=== PATIENT | male | born 1990 | race Caucasian/White ===

== ENCOUNTER 2022-05-14 12:15 | Emergency (ER) | payer BC, SELFPAY ==
[2022-05-14 12:31] VITALS: BP 161/104; PULSE 62; RESP 16; TEMP 36.2; O2SAT 100; BMI 40.3
[2022-05-14 12:44] LABS: Appearance Urine Clear (Clear); Bilirubin Urine Negative (Negative); Blood Urine 3+ (Negative); Color Urine Yellow (Yellow); Glucose Urine Negative (Negative); Ketones Urine Negative (Negative); Leukocyte Esterase Urine Negative (Negative); Nitrite Urine Negative (Negative); Protein Urine Negative (Negative); Urobilinogen Urine 0.2 (0.2-1.0)
[2022-05-14 13:00] LABS: WBC Urine 0-2 (0-5)
--- NOTE | 2022-05-14 13:34 | ED_ITS ---
HPI - Abdominal Pain General Chief Complaint: Flank Pain Stated Complaint: Back pain Time Seen by Provider: 05/14/22 13:20 History of Present Illness HPI narrative: 31-year-old man presenting to the emergency department with complaint of intense waxing and waning achy pain in the left flank beginning yesterday evening. More intense this morning after drinking coffee. Little nauseated but has not vomited. Pain is better at the moment. Has not noticed any hematuria. No fever. Does have a history of passable kidney stones last was maybe 3 years ago. Has been treating with ibuprofen acetaminophen. Last dose did not make much difference. Related Data Home Medications Medication Instructions Recorded Confirmed losartan 50 mg tablet (Cozaar) 50 mg PO DAILY 05/14/22 05/14/22 metoprolol tartrate 50 mg tablet 50 mg PO DAILY 05/14/22 05/14/22 Previous Rx's Medication Instructions Recorded ondansetron 4 mg disintegrating 4 mg PO Q6H PRN Nausea And 05/14/22 tablet Vomiting #10 tabs oxycodone-acetaminophen 5 mg-325 1 - 2 tab PO Q4-6H PRN pain #15 05/14/22 mg tablet (Percocet) tabs tamsulosin 0.4 mg capsule 0.4 mg PO DAILY #14 caps 05/14/22 Allergies Allergy/AdvReac Type Severity Reaction Status Date / Time No Known Drug Allergies Allergy Verified 05/14/22 12:34 Review of Systems Status of ROS Reports: 10 or more systems reviewed and unremarkable except as noted in History and below PFSH PFSH Social History Smoking Status: Never smoker Do you use any of these nicotine containing products: None Second hand tobacco smoke exposure: No How often do you have a drink containing alcohol: never How often do you have six or more drinks on one occasion: Never AUDIT-C Alcohol total score: 0 Non-prescribed substance use: denies use service: No Exam Narrative: Exam Narrative: Pleasant. NAD. Large man. Skin is warm and dry. Does have tattoo on the left volar forearm. Breathing easily. Lungs appear to be clear. Heart with regular rate and rhythm distant but no murmur rub or gallop. Abdomen is soft overweight. Is no reproducible pain at this time. No significant percussion tenderness I would say. Cranial nerves 2-12 look to be intact Const: Vital Signs, click to edit/add: Vital Signs - 24 hr 05/14/22 12:31 Temperature 97.1 F L Pulse Rate [Left P ulse Oximeter] 62 Respiratory Rate 16 Blood Pressure [Le ft Upper Arm] 161/104 H Pulse Oximetry 100 Oxygen Delivery Me thod Room Air Documenting provider has reviewed patient's vital signs: yes Course Vital Signs Vital signs: Initial Vital Signs Temperature 97.1 F L 05/14/22 12:31 Temperature Source Temporal Artery Scan 05/14/22 12:31 Pulse Rate 62 05/14/22 12:31 Pulse Rhythm 05/14/22 12:31 Pulse Strength 3+ Normal 05/14/22 12:31 Respiratory Rate 16 05/14/22 12:31 Blood Pressure 161/104 H 05/14/22 12:31 Blood Pressure Mean 123 05/14/22 12:31 Blood Pressure Position Sitting 05/14/22 12:31 Pulse Oximetry 100 05/14/22 12:31 Oxygen Delivery Method 05/14/22 12:31 Vital Signs Temperature 97.1 F L 05/14/22 12:31 Pulse Rate 62 05/14/22 12:31 Respiratory Rate 16 05/14/22 12:31 Blood Pressure 161/104 H 05/14/22 12:31 Pulse Oximetry 100 05/14/22 12:31 Oxygen Delivery Method 05/14/22 12:31 Temperature 97.1 F L 05/14/22 12:31 Pulse Rate 62 05/14/22 12:31 Respiratory Rate 16 05/14/22 12:31 Blood Pressure 161/104 H 05/14/22 12:31 Pulse Oximetry 100 05/14/22 12:31 Oxygen Delivery Method 05/14/22 12:31 MDM - Abdominal Pain MDM Narrative Medical decision making narrative: Urinalysis is positive for blood without evidence of infection otherwise. We discussed potentially doing imaging or other evaluation. Given history of passable stone and its doing well at this time he would rather do this outpatient if possible. Will provide him with pain management. See patient discharge information/plan Lab Data Attestation: I reviewed the patient's lab results. Labs: Lab Results 05/14/22 Range/Units 12:37 Urine Color Yellow (Yellow) Urine Appearance Clear (Clear) Urine pH 8.0 (5.0-8.5) Ur Specific [place] 1.020 (1.000-1.030) Urine Protein Negative (Negative) Urine Glucose (UA) Negative (Negative) Urine Ketones Negative (Negative) Urine Blood 3+ A (Negative) Urine Nitrite Negative (Negative) Urine Bilirubin Negative (Negative) Urine Urobilinogen 0.2 (0.2-1.0) Ur Leukocyte Esterase Negative (Negative) Urine RBC 10-25 A (0-2) Urine WBC 0-2 (0-5) Ur Squamous Epith Cells None (None-Few) Urine Bacteria None (None) Discharge Plan Discharge Clinical Impression: Ureteral colic, Left ureteral calculus Patient Disposition: Home, Self-Care Condition: Stable Instructions: Ureteral Stones (ED) Additional Instructions: Return for uncontrolled pain, repeated vomiting, fever. Be seen for pain lasting 4 more days has experiencing currently. Can take up to 800 mg of ibuprofen per dose which may be combined with any of the prescribed medications. Strain urine over this next week. Prescriptions: New oxycodone-acetaminophen [Percocet] 5-325 mg tablet 1 - 2 tab PO Q4-6H PRN (Reason: pain) Qty: 15 0RF tamsulosin 0.4 mg capsule 0.4 mg PO DAILY Qty: 14 0RF ondansetron 4 mg tablet,disintegrating 4 mg PO Q6H PRN (Reason: Nausea And Vomiting) Qty: 10 0RF No Action losartan [Cozaar] 50 mg tablet 50 mg PO DAILY metoprolol tartrate 50 mg tablet 50 mg PO DAILY Stand Alone Forms: [employer] Info Instructions
== END 2022-05-14 14:06 | disposition home or self-care (01) ==
PROVIDERS: Emergency Provider Family Medicine
DX: N20.1 Calculus of ureter (principal)
CPT/HCPCS: 81003; 81015; 99283; 99284

== ENCOUNTER 2025-01-01 22:35 | Emergency (ER) | payer BC, SELFPAY ==
--- OUTSIDE RECORDS SUMMARY | 2024-11-24 14:35 | XMS_ITS | Encounter Summary ---
Author Organization [employer] Address [address], [place] [address] Care Team Providers Care Garden Implement Mechanic Name Role Phone Yang Arias PA-C Primary Care Provider [phone] Reason for Referral * Consult/Transfer Care (Routine) - New Request Specialty Diagnoses / Procedures Referred By Carly patel Referred To Contact Diagnoses Class 2 severe obesity with serious comorbidity and body mass index (BMI) of 38.0 to 38.9 in adult, unspecified obesity type (HRC) Yang Arias PA-C [address] [place] [address] Phone: tel: fax: Referral ID Status Reason Start Date Expiration Date V isits Requested Visits Authorized [id number] New Request 11/24/2024 02/23/2026 1 1 Scheduling Instructions Your clinician has recommended an appointment with [employer] Nutrition/Dietitian. You can quickly schedule your appointment by signing in to your online account at [email or web address] or through the text message you may have received. You can also make an appointment by calling [phone]. We also suggest you call your health insurance provider about your benefits and coverage for this appointment. Question Answer Appointment Urgency? Non-Urgent Reason for visit? Needs Weight Loss * Consult/Transfer Care (Routine) - New Request Specialty Diagnoses / Procedures Referred By Carly patel Referred To Contact Diagnoses Class 2 severe obesity with serious comorbidity and body mass index (BMI) of 38.0 to 38.9 in adult, unspecified obesity type (HRC) Yang Arias PA-C [address] [place] [address] Phone: tel: fax: Referral ID Status Reason Start Date Expiration Date V isits Requested Visits Authorized [id number] New Request 11/24/2024 02/23/2026 1 1 Scheduling Instructions Your clinician has recommended an evaluation by our [facility] team. You can quickly schedule your appointment by signing in to your online account at [email or web address] or through the text message you may have received. You can also call [phone] for help scheduling your appointment. Question Answer Appointment Urgency? Non-Urgent Reason for visit? Undecided Reason for Visit * Reason Comments MEDICATION CHECK Refill BP CHECK, HYPERTENSION ROUTINE HEALTH MAINTENANCE Encounter Details Date Type Department Care Team (Late st Contact Info) Description 11/24/2024 2:35 PM CDT Office Visit [facility] [address] [place] [phone] Yang Arias PA-C [address] [place] [address] Routine health maintenance (Primary Dx); Primary hypertension (HRC); Screening for deficiency anemia; Screening for hyperlipidemia; Screening for diabetes mellitus; Screening for prostate cancer; Encounter for immunization; Class 2 severe obesity with serious comorbidity and body mass index (BMI) of 38.0 to 38.9 in adult, unspecified obesity type (HRC) Social History Tobacco Use Types Packs/Day Years Used Date Smoking Tobacco: Former Smokeless Tobacco: Former Chew Quit: 03/14/2021 Alcohol Use Standard Drinks/Week Comments Yes 0 (1 standard drink = 0.6 oz pur e alcohol) Rarely PHQ-2 Answer Date Recorded PHQ-2 Score 0 11/24/2024 Financial Resource Strain Answer Date R ecorded Is it hard for you to pay fo r the very basics like food, housing, medical care or heating? No 07/18/2022 Food Insecurity Answer Date Recorded Does your food run out before you have the money to buy more? No 07/18/2022 Transportation Needs Answer Date Record ed Does a lack of transportatio n keep you from your medical appointments or from getting your medications? 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 file Not on file N ot on file documented as of this encounter Last Filed Vital Signs Vital Sign Reading Time Taken Comments Blood Pressure 156/94 11/24/2024 2:27 PM CDT Pulse 73 11/24/2024 2:25 PM CDT Temperature - - Respiratory Rate 18 11/24/2024 2:25 PM CDT Oxygen Saturation - - Inhaled Oxygen Concentration - - Weight 147 kg (324 lb) 11/24/2024 2:25 PM CDT Height 195.6 cm (6' 5) 11/24/2024 2:25 PM CDT Body Mass Index 38.42 11/24/2024 2:25 PM CDT documented in this encounter Patient Instructions * Patient Instructions* Marika Nathan, TRUCK SALES MANAGER - 11/24/2024 2:35 PM CDT Images from the original note were not included. Well Visit, Ages 18 to 65: Care Instructions Well visits can help you stay healthy. Your doctor has checked your overall health and may have suggested ways to take good care of yourself. Your doctor also may have recommended tests. You can helpprevent illness with healthy eating, good sleep, vaccinations, regular exercise, and other steps. Get the tests that you and your doctor decide on. Depending on your age and risks, examples might include screening for diabetes; hepatitis C; HIV; and cervical, breast, lung, and colon cancer. Screening helps find diseases before any symptoms appear. Eat healthy foods. Choose fruits, vegetables, whole grains, lean protein, and low-fat dairy foods. Limit saturated fat and reduce salt. Limit alcohol. Men should have no more than 2 drinks a day. Women should have no more than 1. For some people, no alcohol is the best choice. Exercise. Get at least 30 minutes of exercise on most days of the week. Walking can be a good choice. Reach and stay at your healthy weight. This will lower your risk for many health problems. Take care of your mental health. Try to stay connected with friends, family, and community, and find ways to manage stress. If you're feeling depressed or hopeless, talk to someone. A counselor can help. If you don't have acounselor, talk to your doctor. Talk to your doctor if you think you may have a problem with alcohol or drug use. This includes prescription medicines, marijuana, and other drugs. Avoid tobacco and nicotine: Don't smoke, vape, or chew. If you need help quitting, talk to your doctor. Practice safer sex. Getting tested, using condoms or dental dams, and limiting sex partners can help prevent STIs. Use control if it's important to you to prevent . Talk with your doctor about your choices and what might be best for you. Prevent problems where you can. Protect your skin from too much sun, wash your hands, brush your teeth twice a day, and wear a seat belt in the car. Where can you learn more? 1. Go to https://www.[employer]/SandLinkslibrary. 2. Enter P072 in the search box. Current as of: July 14, 2023 Content Version: 14.5 ?? 7268-1678 [employer]. Care instructions adapted under license by your healthcare professional. If you have questions about a medical condition or this instruction, always ask your healthcare professional. [employer] disclaims any warranty or liability for your use of this information. [employer] DNA is your genetic information, and it's unique to you. It can also hold the joe to discovering genetic health risks, creating personalized care and building a healthier community. [employer] is launching [employer], a study that looks at how DNA impacts health and how it canbe used to provide more personalized care to you, your family and community. What you can learn from your DNA Looking at your DNA can give insight to your personal traits, ancestral roots and risk of developing certain inherited conditions. Discover your genetic risk for: Hereditary breast and ovarian cancer Velasquez syndrome (a type of hereditary colorectal cancer) Familial hypercholesterolemia (hereditary high cholesterol) Learn about your: Regional ancestry Traits like gluten tolerance, caffeine sensitivity and more How to participate Be a part of a program that could improve health care for you, your family and generations to come.If you're a [facility] or Tomeka Hayward patient over the age of 18, you can take part in the study. Registration is quick and easy, and there is no cost to you. Learn more about [employer] and register at [employer]/Access Information Management Your privacy is our priority We take great care to keep your information safe and secure and will not share personal data beyondwhat you have consented to. documented in this encounter Progress Notes * Yang Arias PA-C - 11/24/2024 2:35 PM CDT Subjective Vern presents for MEDICATION CHECK; Refill; BP CHECK,MD; HYPERTENSION; and ROUTINE HEALTH MAINTENANCE care. Vern Pillai is a 34 y.o. male with a pmh of HTN, JOHN, migraines, kidney stone, and obesity whopresents for RHM. 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 He stated that he was surprised by the elevation in his bp, and how recently at home for life insurance assessment his blood pressure was stable. He stated that he has lostsome weight and now stuck at his current weight. He stated that he doesn't know what else to do. Hedenied any increased salt in his diet. He endorsed adherence with Irbesartan with no worsening sideeffects. He denied any fevers or chills. No chest pain or SOB. No N/V or abd pain. No new rashes or bruising. No additional concerns were addressed, and remainder of ROS was negative. Current concerns: refills of medications Consumption of fruits and vegetables is 2-4 servings each day. Exercise is physical job Hearing concerns: No Feels safe at home: Yes Objective BP (!) 156/94 (BP Location: Left Arm, BP Cuff Size: Large) Pulse 73 Resp 18 Ht 6' 5 (1.956 m) Wt (!) 324 lb (147 kg) BMI 38.42 kg/m?? General: Appears stated age, alert and comfortable HEENT: normal eyes, ears, throat, oropharynx Neck: thyroid normal Lungs: clear to auscultation, no wheezes or rales CV: regular rate and rhythm, normal S1 and S2 without murmur or click Abd: Soft, non-tender, no masses, no hepatomegaly or splenomegaly. : not examined Skin: no significant abnormalities noted Assessment/Plan Screening for deficiency anemia - Complete Blood Count-No Diff; Future Primary hypertension (HRC) - irbesartan (AVAPRO) 300 MG tablet; Take 1 Tablet (300 mg) by mouth daily. - Comp Metabolic Panel; Future Screening for hyperlipidemia - Lipid Panel & Direct LDL (if Needed); Future Screening for diabetes mellitus - Hgb A1C; Future Screening for prostate cancer - Prostatic Specific Antigen (Screen); Future Routine health maintenance Encounter for immunization - 9Vhpv (Gardasil) - 9Vhpv (Gardasil); Future - 9Vhpv (Gardasil); Future Class 2 severe obesity with serious comorbidity and body mass index (BMI) of 38.0 to 38.9 in adult,unspecified obesity type (HRC) - Weight Management and Bariatric Surgery Consult - Nutrition/Dietitian MDM: It was a pleasure seeing Librado today, and I was happy to assist in his care. Advised that he needs to check his bp at home and to purchase a home monitor and give me an updated reading. His 1st gardasil shot was administered without issue, and future shots were ordered. Weight management referral placed to help with further weight loss efforts. Advised continued annual follow up or sooner withany other acute changes to his health. Pt was in agreement with plan, and had no further questions. Patient counseled: -healthy diet -increasing physical activity -safe alcohol consumption -protection from UV light -sleep hygiene -stress management -recommended immunizations Yang Arias PA-C 11/24/2024, 4:49 PM documented in this encounter Plan of Treatment Scheduled Referrals Name Type Priority Associated Diagnoses Orde r Schedule Weight Management and Bariatric Surgery Consult Referral Routine Class 2 severe obesity with serious comorbidity and body mass index (BMI) of 38.0 to 38.9 in adult, unspecified obesity type (HRC) Ordered: 11/24/2024 Nutrition/Dietitian Referral Routine Class 2 severe obesity with serious comorbidity and body mass index (BMI) of 38.0 to 38.9 in adult, unspecified obesity type (HRC) Ordered: 11/24/2024 documented as of this encounter Results * Prostatic Specific Antigen (Screen) (11/24/2024 3:16 PM CDT) Prostatic Specific Antigen 0.5 <=2.5 ng/mL 11/24/2024 7:15 PM CDT [facility] Comment:When the PSA value i s below the age-specific reference value but within 0.5 ng/mL, consider referral to urology. Blood Venipuncture / Unknown 11/24/2024 3:16 PM CDT 11/24/2024 3:16 PM CDT Narrative [facility] - 11/24/2024 7:15 PM CDT The Walker PSA Chemiluminescent immunoassay is used. Results obtained with different test methods or kits cannot be used interchangeably. us Yang Arias PA-C LAB_1 Final Resul t [facility] CLIA: [id number] [address] [place] [address] * (ABNORMAL) Lipid Panel & Direct LDL (if Needed) (11/24/2024 3:16 PM CDT) Cholesterol 152 0 - 199 mg/dL 11/24/2024 6:59 PM CDT [facility] Triglyceride 51 <=149 mg/dL 11/24/2024 6:59 PM CDT [facility] HDL Cholesterol 31(L) >=40 mg/dL 11/24/2024 6:59 PM CDT [facility] LDL, Calculated 111 <130 mg/dL 11/24/2024 6:59 PM CDT [facility] Non HDL Chol, Calculated 121 <=159 mg/dL 11/24/2024 6:59 PM CDT [facility] Cholesterol/HDL Ratio 4.9 <=5.0 11/24/2024 6:59 PM CDT [facility] Hours Fasting 5.0 8 - 12 Hours 11/24/2024 6:59 PM T [facility] Blood Venipuncture / Unknown 11/24/2024 3:16 PM CDT 11/24/2024 3:16 PM CDT Yang Arias PA-C LAB_1 Final Resul t Performing Organization Address [facility] de Phone Number [facility] CLIA: [id number] [address] [place] [address] [facility]ORATORY CLIA: [id number] [address] [place] [id number] * (ABNORMAL) Hgb A1C (11/24/2024 3:16 PM CDT) Hemoglobin A1C 5.8(H) <=5.6 % 11/24/2024 7:09 PM T [facility] Estimated Average Glucose (Calc) 120 < 117 mg/dL 11/24/2024 7:09 PM T [facility] Comment:Estimated average gl ucose (eAG) converts A1c into glucose units (mg/dL) and estimates average glucose over the past approximately 3 months. The eAG reference interval (<117 mg/dL) corresponds to an A1c of <5.7%. Blood Venipuncture / Unknown 11/24/2024 3:16 PM CDT 11/24/2024 3:16 PM CDT Narrative [facility] - 11/24/2024 7:09 PM CDT For patients not previously diagnosed with diabetes: 5.7-6.4%: Increased risk for diabetes 6.5% and greater: Diagnostic for diabetes For patients diagnosed with diabetes: <8.0%: Goal of therapy for ages 18-75 Clinicians may recommend a higher or lower goal for specific individuals. us Yang Arias PA-C LAB_1 Final Resul t Performing Organization Address [facility] Co de Phone Number [facility] CLIA: [id number] [address] [place], [place] [address] * Complete Blood Count-No Diff (11/24/2024 3:16 PM CDT) Pathologist [facility] WBC 4.7 3.5 - 10.5 x10(9)/L 11/24/2024 3:20 PM CDT [facility] RBC 4.89 4.32 - 5.72 x10(12)/L 11/24/2024 3:20 PM CDT [facility] Hemoglobin 14.9 13.5 - 17.5 g/dL 11/24/2024 3:20 PM CDT [facility] HCT 43.8 38.8 - 50.0 % 11/24/2024 3:20 PM CDT [facility] MCV 89.6 80.0 - 100.0 fL 11/24/2024 3:20 PM CDT [facility] MCH 30.5 27.6 - 33.3 pg 11/24/2024 3:20 PM CDT [facility] MCHC 34.0 31.5 - 35.2 g/dL 11/24/2024 3:20 PM CDT [facility] RDW 13.4 11.9 - 15.5 % 11/24/2024 3:20 PM CDT [facility] Platelets 287 150 - 450 x10(9)/L 11/24/2024 3:20 PM CDT [facility] Blood Venipuncture / Unknown 11/24/2024 3:16 PM CDT 11/24/2024 3:16 PM CDT Yang Arias PA-C LAB_1 Final Resul t [facility] CLIA: [id number] [address] [place] [address], [facility] * Comp Metabolic Panel (11/24/2024 3:16 PM CDT) [facility] Sodium 138 136 - 145 mmol/L 11/24/2024 6:59 PM CDT [facility] Potassium 4.3 3.5 - 5.1 mmol/L 11/24/2024 6:59 PM CDT [facility] Chloride 104 98 - 109 mmol/L 11/24/2024 6:59 PM [facility] CO2 28 20 - 29 mmol/L 11/24/2024 6:59 PM [facility] Anion Gap 6 6 - 16 mmol/L 11/24/2024 6:59 PM [facility] Calcium 9.0 8.4 - 10.4 mg/dL 11/24/2024 6:59 PM [facility] BUN 10 7 - 26 mg/dL 11/24/2024 6:59 PM [facility] Creatinine 0.78 0.73 - 1.18 mg/dL 11/24/2024 6:59 PM [facility] Alkaline Phosphatase 66 40 - 150 U/L 11/24/2024 6:59 PM [facility] AST (SGOT) 34 16 - 46 U/L 11/24/2024 6:59 PM [facility] ALT (SGPT) 51 0 - 55 U/L 11/24/2024 6:59 PM [facility] Bilirubin, Total 0.4 0.2 - 1.2 mg/dL 11/24/2024 6:59 PM [facility] Protein, Total 7.2 6.4 - 8.3 g/dL 11/24/2024 6:59 PM [facility] Albumin 4.5 3.5 - 5.0 g/dL 11/24/2024 6:59 PM [facility] Glucose 90 70 - 100 mg/dL 11/24/2024 6:59 PM [facility] Comment:The given reference range is for the fasting state. Non-fasting reference range for glucose is 70 - 180 mg/dL. GFR, Estimated >60 >60 mL/min/1. 73m2 11/24/2024 6:59 PM [facility] Hours Fasting 5.0 8 - 12 Hours 11/24/2024 6:59 PM [facility] Blood Venipuncture / Unknown 11/24/2024 3:16 PM CDT 11/24/2024 3:16 PM [facility] Yang Arias PA-C LAB_1 Final Resul t [facility] CLIA: [id number] [address] [address], [facility] CLIA: [id number] [address] [place] [address] documented in this encounter Visit Diagnoses Diagnosis Routine health maintenance- Primary Routine general medical examination at a health care facility Primary hypertension (HRC) Unspecified essential hypertension Screening for deficiency anemia Screening for other and unspecified deficiency anemia Screening for hyperlipidemia Screening for lipoid disorders Screening for diabetes mellitus Screening for prostate cancer Special screening for malignant neoplasm of prostate Encounter for immunization Need for other specified prophylactic vaccination against single bacterial disease Class 2 severe obesity with serious comorbidity and body mass index (BMI) of 38.0 to 38.9 in adult, unspecified obesity type (HRC) documented in this encounter Care Teams Garden Implement Mechanic Relationship Specialty Start Date End Date Yang Arias PA-C [address] [place] [address] PCP - General Physician Agronomy Professor 09/27/21 documented as of this encounter
--- OUTSIDE RECORDS SUMMARY | 2024-11-24 14:35 | XMS_ITS | Encounter Summary ---
Author Organization [facility] Address [address], [place] [address] Care Team Providers Care Blood Bank Attendant Name Role Phone Yang Arias PA-C Primary Care Provider [phone] Reason for Referral * Consult/Transfer Care (Routine) - New Request Specialty Diagnoses / Procedures Referred By Carly patel Referred To Contact Diagnoses Class 2 severe obesity with serious comorbidity and body mass index (BMI) of 38.0 to 38.9 in adult, unspecified obesity type (HRC) Yang Arias PA-C [address] [place] [address] Phone: tel: fax: Referral ID Status Reason Start Date Expiration Date V isits Requested Visits Authorized [id number] New Request 11/24/2024 02/23/2026 1 1 Scheduling Instructions Your clinician has recommended an appointment with [facility]. You can quickly schedule your appointment by signing in to your online account at [email or web address] or through the text message you may have received. You can also make an appointment by calling [phone]. We also suggest you call your health [...] unspecified obesity type (HRC) Yang Arias PA-C [address] [place] [address] Phone: tel: fax: Referral ID Status Reason Start Date Expiration Date V isits Requested Visits Authorized [id number] New Request 11/24/2024 02/23/2026 1 1 Scheduling Instructions Your clinician has recommended an evaluation by our [facility] team. You can quickly schedule your appointment by signing in to your online account at [email or web address] or through the text message you may have received. You can also call [phone] for help scheduling your appointment. Question Answer Appointment Urgency? Non-Urgent Reason for visit? 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 1. Go to [email or web address]. 2. Enter P072 in the search box. Current as of: July 14, 2023 Content Version: 14.5 ?? 8313-0710 [employer]. Care instructions adapted under license by your healthcare professional. If you have questions about a medical condition or this instruction, always ask your healthcare professional. [employer] disclaims any warranty or liability for your use of this information. Sandata DNA is your genetic information, and it's unique to you. It can also hold the joe to discovering genetic health risks, creating personalized care and building a healthier community. [facility] is launching Sandata, a study that looks at how DNA [...] family and generations to come.If you're a [facility] or [facility] patient over the age of 18, you can take part in the study. Registration is quick and easy, and there is no cost to you. Learn more about Sandata and register at [employer]/[place]. com. 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 [...] 0.5 <=2.5 ng/mL 11/24/2024 7:15 PM CDT [facility] Comment:When the PSA value i s below the age-specific reference value but within 0.5 ng/mL, consider referral to urology. Blood Venipuncture / Unknown 11/24/2024 3:16 PM CDT 11/24/2024 3:16 PM CDT Narrative [facility] - 11/24/2024 7:15 PM CDT The Walker PSA Chemiluminescent immunoassay is used. Results obtained with different test methods or kits cannot be used interchangeably. us Yang Arias PA-C LAB_1 Final Resul t [facility] CLIA: [id number] [address] [place] [address] * (ABNORMAL) Lipid Panel & Direct LDL (if Needed) (11/24/2024 3:16 PM CDT) Cholesterol 152 0 - 199 mg/dL 11/24/2024 6:59 PM CDT [facility] Triglyceride 51 <=149 mg/dL 11/24/2024 6:59 PM CDT [facility] HDL Cholesterol 31(L) >=40 mg/dL 11/24/2024 6:59 PM CDT [facility] LDL, Calculated 111 <130 mg/dL 11/24/2024 6:59 PM CDT [facility] Non HDL Chol, Calculated 121 <=159 mg/dL 11/24/2024 6:59 PM CDT [facility] Cholesterol/HDL Ratio 4.9 <=5.0 11/24/2024 6:59 PM CDT [facility] Hours Fasting 5.0 8 - 12 Hours 11/24/2024 6:59 PM T [facility] Blood Venipuncture / Unknown 11/24/2024 3:16 PM CDT 11/24/2024 3:16 PM CDT Yang Arias PA-C LAB_1 Final Resul t Performing Organization Address [facility] de Phone Number [facility] CLIA: [id number] [address] [place] [address] LABORATORY CLIA: [id number] [address] [place] [phone] * (ABNORMAL) Hgb A1C (11/24/2024 3:16 PM CDT) Hemoglobin A1C 5.8(H) <=5.6 % 11/24/2024 7:09 PM T [facility] Estimated Average Glucose (Calc) 120 < 117 mg/dL 11/24/2024 7:09 PM T [facility] Comment:Estimated average gl ucose (eAG) converts A1c into glucose units (mg/dL) and estimates average glucose over the past approximately 3 months. The eAG reference interval (<117 mg/dL) corresponds to an A1c of <5.7%. Blood Venipuncture / Unknown 11/24/2024 3:16 PM CDT 11/24/2024 3:16 PM CDT Narrative [facility] - 11/24/2024 7:09 PM CDT For patients not previously diagnosed with diabetes: 5.7-6.4%: Increased risk for diabetes 6.5% and greater: Diagnostic for diabetes For patients diagnosed with diabetes: <8.0%: Goal of therapy for ages 18-75 Clinicians may recommend a higher or lower goal for specific individuals. us Yang Arias PA-C LAB_1 Final Resul t Performing Organization Address [facility] Co de Phone Number [facility] CLIA: [id number] [address] [place], [place] [address] * Complete Blood Count-No Diff (11/24/2024 3:16 PM CDT) Pathologist [facility] WBC 4.7 3.5 - 10.5 x10(9)/L 11/24/2024 3:20 PM CDT [facility] RBC 4.89 4.32 - 5.72 x10(12)/L 11/24/2024 3:20 PM CDT [facility] Hemoglobin 14.9 13.5 - 17.5 g/dL 11/24/2024 3:20 PM CDT [facility] HCT 43.8 38.8 - 50.0 % 11/24/2024 3:20 PM CDT [facility] MCV 89.6 80.0 - 100.0 fL 11/24/2024 3:20 PM CDT [facility] MCH 30.5 27.6 - 33.3 pg 11/24/2024 3:20 PM CDT [facility] MCHC 34.0 31.5 - 35.2 g/dL 11/24/2024 3:20 PM CDT [facility] RDW 13.4 11.9 - 15.5 % 11/24/2024 3:20 PM CDT [facility] Platelets 287 150 - 450 x10(9)/L 11/24/2024 3:20 PM CDT [facility] Blood Venipuncture / Unknown 11/24/2024 3:16 PM CDT 11/24/2024 3:16 PM CDT Yang Arias PA-C LAB_1 Final Resul t [facility] CLIA: [id number] [address] [place] [address], [facility] * Comp Metabolic Panel (11/24/2024 3:16 PM CDT) [facility] Sodium 138 136 - 145 mmol/L 11/24/2024 6:59 PM CDT [facility] Potassium 4.3 3.5 - 5.1 mmol/L 11/24/2024 6:59 PM CDT [facility] Chloride 104 98 - 109 mmol/L [...] 8 - 12 Hours 11/24/2024 6:59 PM [facility] Blood Venipuncture / Unknown 11/24/2024 3:16 PM CDT 11/24/2024 3:16 PM [facility] Yang Arias PA-C LAB_1 Final Resul t [facility] CLIA: [id number] [address] [address], [facility] CLIA: [id number] [address] [place] [address] documented in this encounter Visit Diagnoses Diagnosis [...] (HRC) documented in this encounter Care Teams Blood Bank Attendant Relationship Specialty Start Date End Date Yang Arias PA-C [address] [place] [address] PCP - General Physician Child Care Team Lead 09/27/21 documented as of this encounter
--- OUTSIDE RECORDS SUMMARY | 2024-11-24 15:05 | XMS_ITS | Encounter Summary ---
Author Organization [facility] Address [address] [place] [address] Care Team Providers Care Tube Sizer And Cutter Operator Name Role Phone Yang Arias PA-C Primary Care Provider [phone] Encounter Details Date Type Department Care Team (Latest Contact Info) Description 11/24/2024 3:05 PM CDT Lab Visit Laboratory at [facility] [place] [facility] [id number] [place] [phone] Primary hypertension (HRC); Screening for deficiency anemia; Screening for diabetes mellitus; Screening for hyperlipidemia; Screening for prostate cancer Social History Tobacco Use Types Packs/Day Years [...] on file 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 Gender Identity Not on file Sexual Orientation Not on file 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 file Not on file N ot on file documented as of this encounter Plan of Treatment Not on file documented as of this encounter Procedures Procedure Name Priority Date/Time Associated Diagnosis Comments LIPID PANEL & DIRECT LDL (IF NEEDED) Routine 11/24/2024 3:16 PM CDT Screening for hyperlipidemia COMPREHENSIVE METABOLIC PANEL Routine 11/24/2024 3:16 PM CDT Primary hypertension (HRC) PROSTATIC SPECIFIC ANTIGEN(SCREEN) Routine 11/24/2024 3:16 PM CDT Screening for prostate cancer COMPLETE BLOOD COUNT-NO DIFF Routine 11/24/2024 3:16 PM CDT Screening for deficiency anemia HGB A1C Routine 11/24/2024 3:16 PM CDT Screening for diabetes mellitus documented in this encounter Results * Prostatic Specific Antigen (Screen) (11/24/2024 3:16 PM CDT) Prostatic Specific Antigen 0.5 <=2.5 ng/mL 11/24/2024 7:15 PM CDT [facility] Comment:When the PSA value i s below the age-specific reference value but within 0.5 ng/mL, consider referral to urology. Blood Venipuncture / Unknown 11/24/2024 3:16 PM CDT 11/24/2024 3:16 PM CDT [facility] - 11/24/2024 7:15 PM CDT The Walker PSA Chemiluminescent immunoassay is used. Results obtained with different test methods or kits cannot be used interchangeably. us Yang Arias PA-C LAB_1 Final Resul t [facility] CLIA: [id number] [address] [place] [id number] [place] [address] * (ABNORMAL) Lipid Panel & Direct LDL (if Needed) (11/24/2024 3:16 PM CDT) Cholesterol 152 0 - 199 mg/dL 11/24/2024 6:59 PM CDT [facility] Triglyceride 51 <=149 mg/dL 11/24/2024 6:59 PM CDT [facility] HDL Cholesterol 31(L) >=40 mg/dL 11/24/2024 6:59 PM CDT [facility] LDL, Calculated 111 <130 mg/dL 11/24/2024 6:59 PM T [facility] Non HDL Chol, Calculated 121 <=159 mg/dL 11/24/2024 6:59 PM CDT [facility] Cholesterol/HDL Ratio 4.9 <=5.0 11/24/2024 6:59 PM T [facility] Hours Fasting 5.0 8 - 12 Hours 11/24/2024 6:59 PM T [facility] Blood Venipuncture / Unknown 11/24/2024 3:16 PM CDT 11/24/2024 3:16 PM CDT Yang Arias PA-C LAB_1 Final Resul t [facility] CLIA: [id number] [address] [place] [address] LABORATORY CLIA: [id number] [address] [place] [address] * (ABNORMAL) Hgb A1C (11/24/2024 3:16 PM CDT) Hemoglobin A1C 5.8(H) <=5.6 % 11/24/2024 7:09 PM T [facility] Estimated Average Glucose (Calc) 120 < 117 mg/dL 11/24/2024 7:09 PM [facility] Comment:Estimated average gl ucose (eAG) converts A1c into glucose units (mg/dL) and estimates average glucose over the past approximately 3 months. The eAG reference interval (<117 mg/dL) corresponds to an A1c of <5.7%. Blood Venipuncture / Unknown 11/24/2024 3:16 PM CDT 11/24/2024 3:16 PM CDT Narrative [facility] - 11/24/2024 7:09 PM CDT For patients not previously diagnosed with diabetes: 5.7-6.4%: Increased risk for diabetes 6.5% and greater: Diagnostic for diabetes For patients diagnosed with diabetes: <8.0%: Goal of therapy for ages 18-75 Clinicians may recommend a higher or lower goal for specific individuals. Yang Arias PA-C LAB_1 Final Resul t [facility] CLIA: [id number] [address] * Complete Blood Count-No Diff (11/24/2024 3:16 PM CDT) WBC 4.7 3.5 - 10.5 x10(9)/L 11/24/2024 3:20 PM CDT [facility] RBC 4.89 4.32 - 5.72 x10(12)/L 11/24/2024 3:20 PM CDT [facility] Hemoglobin 14.9 13.5 - 17.5 g/dL 11/24/2024 3:20 PM CDT [facility] HCT 43.8 38.8 - 50.0 % 11/24/2024 3:20 PM CDT [facility] MCV 89.6 80.0 - 100.0 fL 11/24/2024 3:20 PM CDT [facility] MCH 30.5 27.6 - 33.3 pg 11/24/2024 3:20 PM CDT [facility] MCHC 34.0 31.5 - 35.2 g/dL 11/24/2024 3:20 PM CDT [facility] RDW 13.4 11.9 - 15.5 % 11/24/2024 3:20 PM CDT [facility] Platelets 287 150 - 450 x10(9)/L 11/24/2024 3:20 PM CDT [facility] Blood Venipuncture / Unknown 11/24/2024 3:16 PM CDT 11/24/2024 3:16 PM CDT us Yang Arias PA-C LAB_1 Final Resul t [facility] CLIA: [id number] [address] [place] [address], [facility] * Comp Metabolic Panel (11/24/2024 3:16 PM CDT) Sodium 138 136 - 145 mmol/L 11/24/2024 6:59 PM [facility] Potassium 4.3 3.5 - 5.1 mmol/L 11/24/2024 6:59 PM [facility] Chloride 104 98 - 109 mmol/L 11/24/2024 6:59 PM [facility] CO2 28 20 - 29 mmol/L 11/24/2024 6:59 PM [facility] Anion Gap 6 6 - 16 mmol/L 11/24/2024 6:59 PM [facility] Calcium 9.0 8.4 - 10.4 mg/dL 11/24/2024 6:59 PM [facility] BUN 10 7 - 26 mg/dL 11/24/2024 6:59 PM [facility] Creatinine 0.78 0.73 - 1.18 mg/dL 11/24/2024 6:59 PM [facility] Alkaline Phosphatase 66 40 - 150 U/L 11/24/2024 6:59 PM [facility] AST (SGOT) 34 16 - 46 U/L 11/24/2024 6:59 PM [facility] ALT (SGPT) 51 0 - 55 U/L 11/24/2024 6:59 PM [facility] Bilirubin, Total 0.4 0.2 - 1.2 mg/dL 11/24/2024 6:59 PM [facility] Protein, Total 7.2 6.4 - 8.3 g/dL 11/24/2024 6:59 PM [facility] Albumin 4.5 3.5 - 5.0 g/dL 11/24/2024 6:59 PM [facility] Glucose 90 70 - 100 mg/dL 11/24/2024 6:59 PM CDT [facility] Comment:The given reference range is for the fasting state. Non-fasting reference range for glucose is 70 - 180 mg/dL. GFR, Estimated >60 >60 mL/min/1. 73m2 11/24/2024 6:59 PM CDT [facility] Hours Fasting 5.0 8 - 12 Hours 11/24/2024 6:59 PM T [facility] Blood Venipuncture / Unknown 11/24/2024 3:16 PM CDT 11/24/2024 3:16 PM CDT us Yang Arias PA-C LAB_1 Final Resul t [facility] CLIA: [id number] [address] [place] [address] LABORATORY CLIA: [id number] [place] [id number] documented in this encounter Visit Diagnoses Diagnosis Primary hypertension (HRC) Unspecified essential hypertension Screening for deficiency anemia Screening for other and unspecified deficiency anemia Screening for diabetes mellitus Screening for hyperlipidemia Screening for lipoid disorders Screening for prostate cancer Special screening for malignant neoplasm of prostate documented in this encounter Care Teams Tube Sizer And Cutter Operator Relationship Specialty Start Date End Date Yang Arias PA-C [address] [place] [address] PCP - General Physician Hoist Mechanic 09/27/21 documented as of this encounter
--- OUTSIDE RECORDS SUMMARY | 2024-11-24 15:05 | XMS_ITS | Encounter Summary ---
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 Comment:When the PSA value i s below the age-specific reference value but within 0.5 ng/mL, consider referral to urology. Blood Venipuncture / Unknown 11/24/2024 3:16 PM CDT 11/24/2024 3:16 PM CDT [facility] - 11/24/2024 7:15 PM CDT The Walker PSA Chemiluminescent immunoassay is used. Results obtained with different test methods or kits cannot be used interchangeably. us Yang Arias PA-C LAB_[address] [facility] CLIA: [id number] [address] [place] [id number] [place] [address] * (ABNORMAL) Lipid Panel & Direct LDL (if Needed) (11/24/2024 3:16 PM CDT) Cholesterol 152 0 - 199 mg/dL 11/24/2024 6:[address] [facility] Triglyceride 51 <=149 mg/dL 11/24/2024 6:[address] [facility] HDL Cholesterol 31(L) >=40 mg/dL 11/24/2024 6:[address] [facility] LDL, Calculated 111 <130 mg/dL 11/24/2024 6:[address] [facility] Non HDL Chol, Calculated 121 <=159 mg/dL 11/24/2024 6:[address] [facility] Cholesterol/HDL Ratio 4.9 <=5.0 11/24/2024 6:[address] [facility] Hours Fasting 5.0 8 - 12 Hours 11/24/2024 6:59 PM T [facility] Blood Venipuncture / Unknown 11/24/2024 3:16 PM CDT 11/24/2024 3:16 PM CDT Yang Arias PA-C LAB_[address] [facility] CLIA: [id number] [address] [place] [address] LABORATORY CLIA: [id number] [address] [place] [address] * (ABNORMAL) Hgb A1C (11/24/2024 3:16 PM CDT) Hemoglobin A1C 5.8(H) <=5.6 % 11/24/2024 7:[address] [facility] Estimated Average Glucose (Calc) 120 < 117 mg/dL 11/24/2024 7:09 PM [facility] Comment:Estimated average gl ucose (eAG) converts A1c into glucose units (mg/dL) and estimates average glucose over the past approximately 3 months. The eAG reference interval (<117 mg/dL) corresponds to an A1c of <5.7%. Blood Venipuncture / Unknown 11/24/2024 3:16 PM CDT 11/24/2024 3:[address] [facility] - 11/24/2024 7:09 PM CDT For patients not previously diagnosed with diabetes: 5.7-6.4%: Increased risk for diabetes 6.5% and greater: Diagnostic for diabetes For patients diagnosed with diabetes: <8.0%: Goal of therapy for ages 18-75 Clinicians may recommend a higher or lower goal for specific individuals. Yang Arias PA-C LAB_[address] [facility] CLIA: [id number] [address] * Complete Blood Count-No Diff (11/24/2024 3:16 PM CDT) WBC 4.7 3.5 - 10.5 x10(9)/L 11/24/2024 3:20 PM CDT [facility] RBC 4.89 4.32 - 5.72 x10(12)/L 11/24/2024 3:20 PM CDT [facility] Hemoglobin 14.9 13.5 - 17.5 g/dL 11/24/2024 3:20 PM CDT [facility] HCT 43.8 38.8 - 50.0 % 11/24/2024 3:20 PM CDT [facility] MCV 89.6 80.0 - 100.0 fL 11/24/2024 3:20 PM CDT [facility] MCH 30.5 27.6 - 33.3 pg 11/24/2024 3:20 PM CDT [facility] MCHC 34.0 31.5 - 35.2 g/dL 11/24/2024 3:20 PM CDT [facility] RDW 13.4 11.9 - 15.5 % 11/24/2024 3:20 PM CDT [facility] Platelets 287 150 - 450 x10(9)/L 11/24/2024 3:20 PM CDT [facility] Blood Venipuncture / Unknown 11/24/2024 3:16 PM CDT 11/24/2024 3:16 PM CDT us Yang Arias PA-C LAB_1 Final Resul t [facility] CLIA: [id number] [address] [place] [address], [facility] * Comp Metabolic Panel (11/24/2024 3:16 PM CDT) Sodium 138 136 - 145 mmol/L 11/24/2024 6:59 PM [facility] Potassium 4.3 3.5 - 5.1 mmol/L 11/24/2024 6:59 PM [facility] Chloride 104 98 - 109 mmol/L 11/24/2024 6:59 PM [facility] CO2 28 20 - 29 mmol/L 11/24/2024 6:59 PM [facility] Anion Gap 6 6 - 16 mmol/L 11/24/2024 6:59 PM [facility] Calcium 9.0 8.4 - 10.4 mg/dL 11/24/2024 6:59 PM [facility] BUN 10 7 - 26 mg/dL 11/24/2024 6:59 PM [facility] Creatinine 0.78 0.73 - 1.18 mg/dL 11/24/2024 6:59 PM [facility] Alkaline Phosphatase 66 40 - 150 U/L 11/24/2024 6:59 PM [facility] AST (SGOT) 34 16 - 46 U/L 11/24/2024 6:59 PM [facility] ALT (SGPT) 51 0 - 55 U/L 11/24/2024 6:59 PM [facility] Bilirubin, Total 0.4 0.2 - 1.2 mg/dL 11/24/2024 6:59 PM [facility] Protein, Total 7.2 6.4 - 8.3 g/dL 11/24/2024 6:59 PM [facility] Albumin 4.5 3.5 - 5.0 g/dL 11/24/2024 6:59 PM [facility] Glucose 90 70 - 100 mg/dL 11/24/2024 6:59 PM CDT [facility] Comment:The given reference range is for the fasting state. Non-fasting reference range for glucose is 70 - 180 mg/dL. GFR, Estimated >60 >60 mL/min/1. 73m2 11/24/2024 6:59 PM CDT [facility] Hours Fasting 5.0 8 - 12 Hours 11/24/2024 6:59 PM T [facility] Blood Venipuncture / Unknown 11/24/2024 3:16 PM CDT 11/24/2024 3:16 PM CDT us Yang Arias PA-C LAB_[address] [facility] CLIA: [id number] [address] [place] [address] LABORATORY CLIA: [id number] [place] [phone] documented in this encounter Visit Diagnoses Diagnosis Primary hypertension (HRC) Unspecified essential hypertension Screening for deficiency anemia Screening for other and unspecified deficiency anemia Screening for diabetes mellitus Screening for hyperlipidemia Screening for lipoid disorders Screening for prostate cancer Special screening for malignant neoplasm of prostate documented in this encounter Care Teams Management Information Systems Director Relationship Specialty Start Date End Date Yang Arias PA-C [address] [place] [address] PCP - General Physician Road Boss 09/27/21 documented as of this encounter
--- OUTSIDE RECORDS SUMMARY | 2024-12-26 13:00 | XMS_ITS | Encounter Summary ---
Author Organization [employer] Address [address] [place] [address] Care Team Providers Care Export Sales Assistant Name Role Phone Yang Arias PA-C Primary Care Provider [phone] Reason for Visit * Reason Comments INJURY, TOES Stubbed right foot b ig toe on 12/23/24 RASH Both armpits, s/s fe w weeks Encounter Details Date Type Department Care Team (Late st Contact Info) Description 12/26/2024 1:00 PM CDT Office Visit [facility] [address] [place] [address] Linh Armendariz PA-C [address] [place] [address] Cellulitis of great toe of left foot (Primary Dx); Dermatitis; Essential hypertension (HRC) Social History Tobacco Use Types Packs/Day [...] on file 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 Gender Identity Not on file Sexual Orientation Not on file 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 file Not on file N ot on file documented as of this encounter Last Filed Vital Signs Vital Sign Reading Time Taken Comments Blood Pressure 144/93 12/26/2024 1:18 PM CDT Pulse 75 12/26/2024 1:18 PM CDT Temperature 36.7 C (98.1 F) 12/26/2024 12:57 PM CDT Respiratory Rate 14 12/26/2024 12:57 PM CDT Oxygen Saturation - - Inhaled Oxygen Concentration - - Weight - - Height - - Body Mass Index - - documented in this encounter Progress Notes * Linh Armendariz PA-C - 12/26/2024 1:00 PM CDT Historical: Chief Complaint Patient presents with INJURY, TOES Stubbed right foot big toe on 12/23/24 RASH Both armpits, s/s few weeks Right foot big toe injury: stubbed toe on 12/23/24, wondering if infected Rash Where is the rash? Both armpits How long have you had this rash? 2 week(s) Are you exposed to irritants (plants, animals, chemicals, a change in lotion, soaps, or detergents)? No Have you had a recent change in medications? No Do you have any family members or contacts with similar symptoms? No Do you have any joint pain? YES-states always has that Do you have a fever? No Have you had a similar rash in the past? No Is the rash itchy? YES Is the rash painful? No History of Present Illness Vern Pillai is a 34 year old male who presents with a painful right great toe following traumaand concerns about possible infection. He stubbed his toe on furniture, resulting in a painful toe and mangled toenail. He tore off the nail that was damaged. Pulled away some skin in the process. The area has become red and painful over the past few days, with exudate present. He uses hydrogen peroxide for cleaning. There is no fever or systemic symptoms, but the area is achy and red. Being on his feet all day may contribute to the di scomfort. He has a persistent rash in the armpit area for several months. The rash is itchy, circular, and scaly, with no improvement from [id number] hydrocortisone or antifungal treatments. He monitors his blood pressure at home, where it is typically normal. He takes irbesartan 300mg forblood pressure management. I have personally reviewed the patient's allergies, medications, and past medical history in detailand updated the patient record as necessary. Observed: BP (!) 146/88 (BP Location: Left Arm, BP Cuff Size: Regular) Pulse 77 Temp 98.1 ??F (36.7 ??C) (Oral) Resp 14 Physical Exam: General Appearance: alert, well appearing, and in no apparent distress Musculoskeletal: Foot and Ankle: right great toe: lateral edge with purulent material and granulation tissue present. Mild erythema to the lateral aspect of his toe is present. Mild tenderness. Skin: under aspect of both upper arms he has a couple circular mildly erythematous very slightly scaly lesions. Assessment/Plan: Cellulitis of great toe of left foot - cephalexin (KEFLEX) 500 MG capsule; Take 1 Capsule (500 mg) by mouth three times a day for 7 days. Dermatitis - triamcinolone acetonide (KENALOG) 0.1 % cream; Apply topically two times a day. Essential hypertension (HRC) Other orders - 9VHPV (GARDASIL 9) Assessment & Plan Infected right great toenail (paronychia) Acute infection likely due to trauma and nail removal, with redness and exudate. - Prescribe Cefalexin 500 mg, one capsule TID for 7 days. - Advise warm water foot soaks, with or without Epsom salts. - Recommend topical Bacitracin application. - Instruct to keep area clean and covered. - Advise monitoring for increased redness or systemic infection signs. Chronic dermatitis of upper trunk and axillae Chronic dermatitis with intermittent itching, unresponsive to OTC treatments. - Prescribe stronger prescription steroid cream, apply BID. - Advise consistent application for a couple of weeks. Essential hypertension Elevated clinic BP likely due to white coat effect; home readings normal with consistent Irbesartanuse. - Continue Irbesartan. - Advise periodic home BP monitoring. Please see orders and patient instructions Linh Armendariz PA-C documented in this encounter Plan of Treatment Not on file documented as of this encounter Visit Diagnoses Diagnosis Cellulitis of great toe of left foot- Primary Cellulitis and abscess of toe, unspecified Dermatitis Contact dermatitis and other eczema, due to unspecified cause Essential hypertension (HRC) Unspecified essential hypertension documented in this encounter Care Teams Export Sales Assistant Relationship Specialty Start Date End Date Yang Arias PA-C [address] [place] [address] PCP - General Physician Pamphlet Distributor 09/27/21 documented as of this encounter
--- OUTSIDE RECORDS SUMMARY | 2024-12-26 13:00 | XMS_ITS | Encounter Summary ---
Author Organization [facility] Address [address] [place] [address] Care Team Providers Care Clinical Marketing Manager Name Role Phone Yang Arias PA-C Primary Care Provider [phone] Reason for Visit * Reason Comments INJURY, TOES Stubbed right foot b ig toe on 12/23/24 RASH Both armpits, s/s fe w weeks Encounter Details Date Type Department Care Team (Late st Contact Info) Description 12/26/2024 1:00 PM CDT Office Visit [place] [facility] [address] [place] [address] Linh Armendariz PA-C [address] [place] [address] Cellulitis of great toe of [...] on file 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 He monitors his [...] hypertension documented in this encounter Care Teams Clinical Marketing Manager Relationship Specialty Start Date End Date Yang Arias PA-C [address] [place] [address] PCP - General Physician Top Ironer 09/27/21 documented as of this encounter
--- OUTSIDE RECORDS SUMMARY | 2025-01-01 22:37 | XMS_ITS | Encounter Summary ---
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
--- OUTSIDE RECORDS SUMMARY | 2025-01-01 22:38 | XMS_ITS | Encounter Summary ---
Author Organization [employer] [facility] Address [address] [place] [address] Care Team Providers Care Tile Burner Name Role Phone Yang Arias PA-C Primary Care Provider [phone] Encounter Details Date Type Department Care Team (Latest Contact Info) Description 07/24/2015 Correspondence Occupational and Environmental Medicine [address] [place] [address] Tori Manning MD [address] [place] [address] [phone] [place] [address] RESPIRATOR CLEARANCE EVALUATION FOR [place] DOC Social History Tobacco Use Types Packs/Day Years Used Date Smoking Tobacco: Former Smokeless Tobacco: Current Chew Comments:quit smoking 3, chew 1/2 a tin daily Alcohol Use Standard Drinks/Week Comments Yes 0 (1 standard drink = 0.6 oz pure alcohol) drinks 4 drinks daily on days off 2 times per week Sex and Gender Information Value Date Recorded Sex Assigned at Not on file 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
--- OUTSIDE RECORDS SUMMARY | 2025-01-01 22:38 | XMS_ITS | Clinical Summary ---
Author Organization [facility] [employer] [facility] Address [address] [place] [id number] Phone Care Team Providers Care Block Chopper Hand Name Role Phone Unavailable Primary Care Provider Unavailabl e Allergies No known active allergies Medications valsartan (DIOVAN) 40 MG tablet Take 1 Tab by mouth one time a day. 90 Tab 1 9 Active losartan (COZAAR) 25 MG tablet Take 25 mg by mouth one time a day. 1 9 Active fluticasone furoate (VERAMYST) 27.5 MCG/SPRAY nasal spray Instill 1 [place] nasally one time a day. Shake well before use; administer to both nostrils. 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 Chest pain 03/29/2012 Acute chest pain also noted 01/19/12, admitted. Kidney stone 11/27/2014 Microscopic hematuria 11/27/2014 W/ dysuria . Obesity, morbid (HCC) Blood pressure elevated with out history of HTN 01/19/2012 Tobacco abuse 01/19/2012 Chronic pain of left knee 04/04/2015 Right hip pain 04/04/2015 Family History Medical History Relation Comments Other Brother 1 ?brain issues Other Brother 2 Congenital heart disease Depression Brother 3 Other Brother 3 Lactose intolera nt Lipid Elevation Father Congestive Heart Failure Maternal Grandmother Stroke Maternal Grandmother Hx of numer ous blood clots. Other Mother Blood clots Cardiovascular Disease Paternal Grandfather S/p CABG in his 40s d/t [place], multple stents and bypasses. Allergies Paternal Grandmother Other Sister x3 sisters Relation Status Comments Brother 1 Brother 2 Brother 3 Father Maternal Grandmother (Age 50) of h eart failure. Mother Paternal Grandfather Paternal Grandmother Sister Social History Tobacco Use Types Packs/Day Years Used Date Smoking Tobacco: Former Cigarettes Q uit: 03/18/2012 Smokeless Tobacco: Former Chew Quit: 08/27/2017 Tobacco Cessation:Ready to Q uit: No Comments:11/27/14: One tin every 2 weeks. Alcohol Use Standard Drinks/Week Comments Yes 0 (1 standard drink = 0.6 oz pur e alcohol) PHQ-2 Answer Date Recorded PHQ-2 Score 0 01/03/2018 Sex and Gender Information Value Date Recorded Sex Assigned at Not on file Legal Sex Male 10:33 AM ESTATE PLANNER Gender Identity Not on file Sexual Orientation Not on file Occupation Industry Job Start Date Job End Date Not on file Not on file Not on file Not on file Last Filed Vital Signs Vital Sign Reading Time Taken Comments Blood Pressure 139/80 12/01/2018 3:02 PM CDT Pulse 74 12/01/2018 3:02 PM CDT Temperature 36.6 C (97.8 F) 05/06/2018 9:10 AM ESTATE PLANNER Respiratory Rate 18 10/29/2017 10:00 AM CDT Oxygen Saturation 98% 12/01/2018 3:02 PM CDT Inhaled Oxygen Concentration - - Weight 143.3 kg (316 lb) 12/01/2018 3:02 PM CDT Height 195.6 cm (6' 5) 12/01/2018 3:02 PM CDT Body Mass Index 37.47 12/01/2018 3:02 PM CDT Plan of Treatment Health Maintenance Due Date Last Done Comments Hepatitis B Vaccine (Standin g Order) (1 of 3 - 19+ 3-dose series) 2008 COVID-19 Vaccine (2023-2 5 season) 2024 Influenza Vaccine Seasonal (Standing Order) (#1) 2024 TETANUS (Standing Order) 04/04/2025 04/04/2015 PERTUSSIS (Standing Order) Completed 04/04/2015 HPV Vaccine (Standing Order) Aged Out No longer eligible based on patient's age to complete this topic Pneumococcal/PCV20 Vaccine: Pediatrics (2-5 yrs) and At-Risk Patients (6-49 yrs) (Standing Order) Aged Out No longer eligible b ased on patient's age to complete this topic Insurance [facility] Commercial Address: [facility] [id number] [place] [id number]
--- OUTSIDE RECORDS SUMMARY | 2025-01-01 22:38 | XMS_ITS | Encounter Summary ---
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
--- OUTSIDE RECORDS SUMMARY | 2025-01-01 22:38 | XMS_ITS | Clinical Summary ---
Author Organization [facility] Address [address] [place] [address] Care Team Providers Care Technical Marketing Engineer Name Role Phone Yang Arias PA-C Primary Care Provider [phone] Source Comments You are receiving this document as you are listed as the primary care provider,follow-up provider, or the patient has been referred to you for consultation.This is in compliance with the Medicare andMedicaid EHR Incentive Program,which states Providers who transition their patient to another setting of careor provider of care or refers their patient to another provider of care shouldprovide summary care record for each transition of care or referral. [facility] Allergies Active Allergy Reactions Criticality Noted Date Comments Lisinopril Cough 04/03/2021 Medications fluticasone propionate (FLONASE) 50 MCG/ACT nasal solution Place 2 Sprays into both nostrils daily. 2 Active irbesartan (AVAPRO) 300 MG tabletIndications :Primary hypertension (HRC) Take 1 Tablet (300 mg) by mouth daily. 90 Tablet 3 5 Active cephalexin (KEFLEX) 500 MG capsuleIndication s:Cellulitis of great toe of left foot Take 1 Capsule (500 mg) by mouth three times a day for 7 days. 21 Capsule 5 01/03/20 25 Active triamcinolone acetonide (KENALOG) 0.1 % creamIndications: Dermatitis Apply topically two times a day. 45 g 5 Active Active Problems Problem Noted Date Diagnosed Date Kidney stone 05/12/2022 JOHN (obstructive sleep apnea) 09/27/2018 Morbid obesity with BMI of 40.0-44.9, adult 10/14 Essential hypertension 10/09/2017 Migraine headache Resolved Problems Problem Noted Date Diagnosed Date Resolved Date Lipoma of torso 10/27/2022 11/24/2024 Overview (10/27/2022): Added automatically from request for surgery [id number] Sleep-related eating disorder 12/01/2018 11/24/2024 Impaired fasting glucose 10/29/201701/2025 Chest pain 03/26/2012 11/24/2024 Anxiety 03/26/2012 11/24/2024 Hypokalemia 03/26/2012 11/24/2024 Encounters Date Type Department Care Team Description 12/26/2024 1:00 PM CDT Office Visit [address] [phone] Linh Armendariz PA-C Cellulitis of great toe of left foot (Primary Dx); Dermatitis; Essential hypertension (HRC) 12/05/2024 E-Visit [facility] [address] [place] [address] Saulo Cochran 11/25/2024 Results Follow-Up [address] [phone] Yang Arias PA-C 11/24/2024 3:05 PM CDT Lab Visit Laboratory at [address] [phone] Primary hypertension (HRC); Screening for deficiency anemia; Screening for diabetes mellitus; Screening for hyperlipidemia; Screening for prostate cancer 11/24/2024 2:35 PM CDT Office Visit [address] [phone] Yang Arias PA-C Routine health maintenance (Primary Dx); Primary hypertension (HRC); Screening for deficiency anemia; Screening for hyperlipidemia; Screening for diabetes mellitus; Screening for prostate cancer; Encounter for immunization; Class 2 severe obesity with serious comorbidity and body mass index (BMI) of 38.0 to 38.9 in adult, unspecified obesity type (HRC) 10/25/2024 Telephone [facility] [address] [place] [address] Yang Arias PA-C Medication Questions (irbesartan (AVAPRO) 300 MG tablet) from Last 3 Months Immunizations Immunization Administration Dates Next Due 9vHPV (Gardasil 9) 12/26/2024,11/24/2024 HepB Ped/Adol (0-18 yrs) 03/29/2004,02/20/2004,1 TB Skin Test (PPD) 10/01/2011 Td (7+ yrs) 07/08/2002 Tdap 04/04/2015 Family History Relation Name Status Comments Father Alive Mother Alive Brother 1 Alive Brother 2 Alive Brother 3 Alive Brother 4 Alive Maternal Grandfather (Age 50) Maternal Grandmother Alive Paternal Grandfather Alive Paternal Grandmother Alive Social History Tobacco Use Types Packs/Day Years Used Date Smoking Tobacco: Former Smokeless Tobacco: Former Chew Quit: 03/14/2021 Tobacco Cessation:Counseling Given: Not Answered Alcohol Use Standard Drinks/Week Comments Yes 0 [...] on file Legal Sex Male 9:26 AM BROAD[employer] Gender Identity Not on file Sexual Orientation Not on file 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 file Not on file N ot on file Last Filed Vital Signs Vital Sign Reading Time Taken Comments Blood Pressure 144/93 12/26/2024 1:18 PM CDT Pulse 75 12/26/2024 1:18 PM CDT Temperature 36.7 C (98.1 F) 12/26/2024 12:57 PM CDT Respiratory Rate 14 12/26/2024 12:57 PM CDT Oxygen Saturation 94% 12/11/2022 3:01 PM CDT Inhaled Oxygen Concentration - - Weight 147 kg (324 lb) 11/24/2024 2:25 PM CDT Height 195.6 cm (6' 5) 11/24/2024 2:25 PM CDT Body Mass Index 38.42 11/24/2024 2:25 PM CDT Plan of Treatment Health Maintenance Due Date Last Done Comments COVID-19 Vaccine ( season) 2024 Influenza Vaccine (#1) 2024 DTaP/Tdap/Td Vaccine (3 - Tdap) 04/04/2025 04/04/2015, 07/08/2002 HPV Vaccine (3 - 3-dose SCDM series) 05/24/2025 12/26/2024, 11/24/2024 Adult Preventive Visit 11/24/2026 , 07/18/2022, 07/23/2021 Diabetes Screening- (based on age and BMI) 11/25/2027 11/24/2024, 08/04/2023, 07/11/2022, Additional history exists Cholesterol 11/24/2029 11/24/2024, 07/15, 07/11/2022, Additional history exists Zoster/Shingles Vaccine (1 of 2) 07/18/2039 HIV Screening (Preventive Services) Completed 07/23/2021 Hep C Screening (Preventive Services) Completed 07/23/2021 HepA Vaccine Aged Out No longer eligi ble based on patient's age to complete this topic Hib Vaccine Aged Out No longer eligi ble based on patient's age to complete this topic IPV (Polio) Vaccine Aged Out No longe r eligible based on patient's age to complete this topic MCV4 Vaccine Aged Out No longer eligi ble based on patient's age to complete this topic Meningococcal B Vaccine Aged Out No l onger eligible based on patient's age to complete this topic Pneumococcal Vaccine Aged Out No long er eligible based on patient's age to complete this topic Procedures Procedure Name Priority Date/Time Associated Diagnosis Comments PROSTATIC SPECIFIC ANTIGEN(SCREEN) Routine 11/24/2024 3:16 PM CDT Screening for prostate cancer LIPID PANEL & DIRECT LDL (IF NEEDED) Routine 11/24/2024 3:16 PM CDT Screening for hyperlipidemia HGB A1C Routine 11/24/2024 3:16 PM CDT Screening for diabetes mellitus COMPLETE BLOOD COUNT-NO DIFF Routine 11/24/2024 3:16 PM CDT Screening for deficiency anemia COMPREHENSIVE METABOLIC PANEL Routine 11/24/2024 3:16 PM CDT Primary hypertension (HRC) HIV 1/2 AG/AB 4TH GEN Routine 07/23/2021 11:39 AM CDT Screening for HIV (human immunodeficiency virus) HEPATITIS C ANTIBODY, WITH REFLEX (ANTI-HCV) Routine 07/23/2021 11:39 AM CDT Need for hepatitis C screening test from Last 3 Months or Most Recently Relevant to Health Maintenance Results * (ABNORMAL) Lipid Panel & Direct LDL (if Needed) (11/24/2024 3:16 PM CDT) Cholesterol 152 0 - 199 mg/dL 11/24/2024 6:59 PM CDT [facility] Triglyceride 51 <=149 mg/dL 11/24/2024 6:59 PM T [facility] HDL Cholesterol 31(L) >=40 mg/dL 11/24/2024 6:59 PM CDT [facility] LDL, Calculated 111 <130 mg/dL 11/24/2024 6:59 PM T [facility] Non HDL Chol, Calculated 121 <=159 mg/dL 11/24/2024 6:59 PM T [facility] Cholesterol/HDL Ratio 4.9 <=5.0 11/24/2024 6:59 PM T [facility] Hours Fasting 5.0 8 - 12 Hours 11/24/2024 6:59 PM CDT [facility] Blood Venipuncture / Unknown 11/24/2024 3:16 PM CDT 11/24/2024 3:16 PM CDT us Yang Arias PA-C LAB_1 Final Resul t [facility] CLIA: [id number] [id number] [place] [address] LABORATORY CLIA: [id number] [address] [place] [id number] * Comp Metabolic Panel (11/24/2024 3:16 PM CDT) Sodium 138 136 - 145 mmol/L 11/24/2024 6:59 PM [facility] Potassium 4.3 3.5 - 5.1 mmol/L 11/24/2024 6:59 PM [facility] Chloride 104 98 - 109 mmol/L 11/24/2024 6:59 PM T [facility] CO2 28 20 - 29 mmol/L 11/24/2024 6:59 PM [facility] Anion Gap 6 6 - 16 mmol/L 11/24/2024 6:59 PM [facility] Calcium 9.0 8.4 - 10.4 mg/dL 11/24/2024 6:59 PM [facility] BUN 10 7 - 26 mg/dL 11/24/2024 6:59 PM [facility] Creatinine 0.78 0.73 - 1.18 mg/dL 11/24/2024 6:59 PM [facility] Alkaline Phosphatase 66 40 - 150 U/L 11/24/2024 6:59 PM [facility] AST (SGOT) 34 16 - 46 U/L 11/24/2024 6:59 PM [facility] ALT (SGPT) 51 0 - 55 U/L 11/24/2024 6:59 PM [facility] Bilirubin, Total 0.4 0.2 - 1.2 mg/dL 11/24/2024 6:59 PM [facility] Protein, Total 7.2 6.4 - 8.3 g/dL 11/24/2024 6:59 PM CDT [facility] Albumin 4.5 3.5 - 5.0 g/dL 11/24/2024 6:59 PM CDT [facility] Glucose 90 70 - 100 mg/dL 11/24/2024 6:59 PM CDT [facility] Comment:The given reference range is for the fasting state. Non-fasting reference range for glucose is 70 - 180 mg/dL. GFR, Estimated >60 >60 mL/min/1. 73m2 11/24/2024 6:59 PM CDT [facility] Hours Fasting 5.0 8 - 12 Hours 11/24/2024 6:59 PM CDT [facility] Blood Venipuncture / Unknown 11/24/2024 3:16 PM CDT 11/24/2024 3:16 PM CDT Yang Arias PA-C LAB_1 Final Resul t [facility] CLIA: [id number] [address] [place] [address] LABORATORY CLIA: [id number] [address] [place] [address] * Prostatic Specific Antigen (Screen) (11/24/2024 3:16 PM CDT) Prostatic Specific Antigen 0.5 <=2.5 ng/mL 11/24/2024 7:15 PM CDT [facility] Comment:When the PSA value i s below the age-specific reference value but within 0.5 ng/mL, consider referral to urology. Blood Venipuncture / Unknown 11/24/2024 3:16 PM CDT 11/24/2024 3:16 PM CDT Narrative [facility] - 11/24/2024 7:15 PM CDT [facility] PSA Chemiluminescent immunoassay is used. Results obtained with different test methods or kits cannot be used interchangeably. us Yagn Arias PA-C LAB_1 Final Resul t [facility] CLIA: [id number] [address] [id number] * Complete Blood Count-No Diff (11/24/2024 3:16 PM CDT) WBC 4.7 3.5 - 10.5 x10(9)/L 11/24/2024 3:20 PM CDT [facility] RBC 4.89 4.32 - 5.72 x10(12)/L 11/24/2024 3:20 PM CDT [facility] Hemoglobin 14.9 13.5 - 17.5 g/dL 11/24/2024 3:20 PM CDT [facility] HCT 43.8 38.8 - 50.0 % 11/24/2024 3:20 PM CDT [facility] MCV 89.6 80.0 - 100.0 fL 11/24/2024 3:20 PM CDT [facility] MCH 30.5 27.6 - 33.3 pg 11/24/2024 3:20 PM CDT [facility] MCHC 34.0 31.5 - 35.2 g/dL 11/24/2024 3:20 PM CDT [facility] RDW 13.4 11.9 - 15.5 % 11/24/2024 3:20 PM CDT [facility] Platelets 287 150 - 450 x10(9)/L 11/24/2024 3:20 PM CDT [facility] Blood Venipuncture / Unknown 11/24/2024 3:16 PM CDT 11/24/2024 3:16 PM CDT Yang Arias PA-C LAB_1 Final Resul t [facility] CLIA: [id number] [address] [place] [address] * (ABNORMAL) Hgb A1C (11/24/2024 3:16 PM CDT) Hemoglobin A1C 5.8(H) <=5.6 % 11/24/2024 7:09 PM CDT [facility] Estimated Average Glucose (Calc) 120 < 117 mg/dL 11/24/2024 7:09 PM CDT [facility] Comment:Estimated average gl ucose (eAG) converts A1c into glucose units (mg/dL) and estimates average glucose over the past approximately 3 months. The eAG reference interval (<117 mg/dL) corresponds to an A1c of <5.7%. Blood Venipuncture / Unknown 11/24/2024 3:16 PM CDT 11/24/2024 3:16 PM CDT Narrative [facility] - 11/24/2024 7:09 PM CDT For patients not previously diagnosed with diabetes: 5.7-6.4%: Increased risk for diabetes 6.5% and greater: Diagnostic for diabetes For patients diagnosed with diabetes: <8.0%: Goal of therapy for ages 18-75 Clinicians may recommend a higher or lower goal for specific individuals. Yang Arias PA-C LAB_1 Final Resul t Performing Organization Address City/[facility] Co de Phone Number [facility] CLIA: [id number] [address] [place] [address] * HIV 1/2 Ag/Ab 4th Generation (07/23/2021 11:39 AM CDT) HIV 1/2 Antigen/Anti body (4th generation) Negative (Non Reactive) Negative (Non Reactive) 07/23/2021 3:33 PM CDT [facility] Comment:HIV-1 p24 Antigen an d HIV-1/HIV-2 Antibody not detected Blood Venipuncture / Unknown 07/23/2021 11:39 AM CDT 07/23/2021 11:39 AM CDT Yang Arias PA-C LAB_1 Final Resul t Performing Organization Address [facility] Co de Phone Number [facility] [address] [phone] * Hepatitis C Antibody, with Reflex (07/23/2021 11:39 AM CDT) Hepatitis C Antibody Negative (Non Reactive) Negative (Non Reactive) 07/23/2021 3:39 PM CDT [facility] Comment:Antibodies to HCV no t detected. Does not exclude the possiblity of exposure to HCV. Blood Venipuncture / Unknown 07/23/2021 11:39 AM CDT 07/23/2021 11:39 AM CDT us Yang Arias PA-C LAB_1 Final [facility]ul t [facility] [address] [address], [facility] [phone] from Last 3 Months or Most Recently Relevant to Health Maintenance Insurance [facility] HP COMM [facility] DENTAL HP COMM F[employer] INSURED DENTAL Advance Directives * Full Code (Latest Code Status on File) Date Activated Date Inactivated Comments 12/11/2022 1:13 PM 12/11/2022 5:37 PM Care Teams Technical Marketing Engineer Relationship Specialty Start Date End Date Yang Arias PA-C [id number] [place] [address] PCP - General Physician Signal Mechanic 09/27/21
--- OUTSIDE RECORDS SUMMARY | 2025-01-01 22:38 | XMS_ITS | Clinical Summary ---
Author Organization [facility] Address [address] [place] [address] Care Team Providers Care Net Wpf Developer Name Role Phone [facility], [facility] Primary Care Provide r Allergies Active Allergy Reactions Criticality Noted Date Comments Lisinopril Cough 04/03/2021 Medications omeprazole (PRILOSEC) 20 mg Delayed-Release capsuleIndicati ons:Dyspepsia,E sophageal spasm Take 1 Capsule (20 mg) by mouth once daily before a meal. 30 Capsule 04/03/2021 Active metoprolol succinate (Toprol XL) 50 mg sustained-relea se tabletIndicatio ns:HTN (hypertension) Take 1 Tablet (50 mg) by mouth once daily. 90 Tablet 1 05/03/2021 Active Active Problems No known active problems Immunizations Immunization Administration Dates Next Due DTaP 11/06/1994 Hepatitis B (Peds) 03/29/2004,02/20/2004, 003 MMR 07/08/2002 Polio Virus, Unspecified 11/06/1994 Td (Age >=7 Years) 07/08/2002 Tdap 04/04/2015 Tuberculin (PPD) 06/02/2015,10/01/2011 Family History Medical History Relation Name Comments Other Brother 1 Hector lactose intoler ant, depression Other Brother 2 Gustavo ?brain issues Other Brother 3 Jeremiah congenital hear t disease Good Health Daughter Allee Hyperlipidemia Father Unknown Maternal Grandfather Stroke Maternal Grandmother 30's- d ied age 55 heart failure Other Mother Blood clots Heart Disease Paternal Grandfather CABG Allergies Paternal Grandmother Good Health Sister 1 Soco Good Health Sister 2 Iman Good Health Sister 3 Ofe Relation Name Status Comments Brother 1 Hector Brother 2 Gustavo Brother 3 Jeremiah Daughter Giorgio Father Maternal Grandfather Maternal Grandmother Mother Paternal Grandfather Paternal Grandmother Sister 1 Soco Sister 2 Iman Sister 3 Ofe Social History Tobacco Use Types Packs/Day Years Used Date Smoking Tobacco: Former Cigarettes Q uit: 03/18/2012 Smokeless Tobacco: Former Chew Quit: 03/18/2015 Tobacco Cessation:Counseling Given: Yes Comments:1 tin per every 2 weeks Alcohol Use Standard Drinks/Week Comments Yes 0 (1 standard drink = 0.6 oz pur e alcohol) on weekends PHQ-2 Answer Date Recorded PHQ-2 TOTAL SCORE 0 06/06/2020 Social Connections Answer Date Recorded Frequency of Communication with Friends and Fami ly Not on file 03/16/2021 Financial Resource Strain Answer Date R ecorded Difficulty of Paying Living Expenses Not on file 03/16/2021 Difficulty of Paying Living Expenses Not on file 03/16/2021 Sex and Gender Information Value Date Recorded Sex Assigned at Not on file Legal Sex Male 8:35 AM TUNGSTEN REFINER Gender Identity Not on file Sexual Orientation Not on file 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 Not on file Not on f ile Obstetrics History Last Filed Vital Signs Vital Sign Reading Time Taken Comments Blood Pressure 138/88 04/21/2021 1:17 PM TUNGSTEN REFINER Pulse 80 04/19/2021 2:56 PM TUNGSTEN REFINER Temperature 36.5 C (97.7 F) 04/19/2021 2:56 PM TUNGSTEN REFINER Respiratory Rate 16 04/19/2021 2:56 PM TUNGSTEN REFINER Oxygen Saturation 99% 04/19/2021 2:56 PM TUNGSTEN REFINER Inhaled Oxygen Concentration - - Weight 145.2 kg (320 lb) 04/19/2021 2:56 PM TUNGSTEN REFINER Height 195.6 cm (6' 5) 03/24/2021 2:49 PM TUNGSTEN REFINER Body Mass Index 37.95 03/24/2021 2:49 PM TUNGSTEN REFINER Plan of Treatment Health Maintenance Due Date Last Done Comments Hepatitis B series for 19+ ( 4 of 4 - 4-dose series) 04/16/2004 03/29/2004, 02/20/2004, 01/12/2003 HIV for age 15-65 2004 Hepatitis C screening for ag e 18-79 07/18/2007 HPV series for age 9-45 (1 - 3-dose SCDM series) 2016 BMI (ht and wt on same day) for age 18+ 06/06/2021 06/06/2020, 04/04/2015 Depression screening for age 12+ 06/06/2021 06/06/2020, 07/04/2015, 07/04/2015 Lipids for age 35-44 2024 04/04/2015 COVID-19 vaccine series ( - season) 2024 Influenza Vaccine (#1) 2024 Tetanus booster 04/04/2025 04/04/2015, 07/08/2002 RSV vaccine for adults or (1 - 1-dose 75+ series) 2064 Pneumococcal series for age 6-49 Aged Out No longer eligible b ased on patient's age to complete this topic Procedures Procedure Name Priority Date/Time Associated Diagnosis Comments LIPID PANEL W REFLEX MEASURED LDL Routine 04/04/2015 12:46 PM TUNGSTEN REFINER Screening, lipid from Last 3 Months or Most Recently Relevant to Health Maintenance Results * (ABNORMAL) LIPID PANEL W REFLEX MEASURED LDL (04/04/2015 12:46 PM TUNGSTEN REFINER) CHOLESTEROL,TOTAL 138 100 - 199 mg/dL 04/04/2015 1:12 PM [facility] 91 <150 mg/dL 04/04/2015 1:12 PM [facility] HDL CHOLESTEROL 30(L) >40 mg/dL 04/04/2015 1:12 PM [facility] NON-HDL CHOLESTEROL 108 <145 mg/dl 04/04/2015 1:12 PM [facility] CHOL/HDL RATIO 4.60(H) <4.50 04/04/2015 1:12 PM [facility] LDL CHOLESTEROL 90 <=130 mg/dL 04/04/2015 1:12 PM [facility] PATIENT STATUS FASTING 04/04/2015 1:12 PM [facility] Blood specimen (specimen) BLOOD SPECIMEN / Unknown Venipuncture / Unknown 04/04/2015 12:46 PM TUNGSTEN REFINER 04/04/2015 12:46 PM TUNGSTEN REFINER us Mary Mtz MD CHEMISTRY Final Resul t [facility] [place] [address] from Last 3 Months or Most Recently Relevant to Health Maintenance [place] [employer] Care Teams Net Wpf Developer Relationship Specialty Start Date End Date [facility] [place] [address] [place] [id number] PCP - General 01/30/21
[2025-01-01 22:45] VITALS: BP 153/96; PULSE 83; RESP 16; TEMP 36.7; O2SAT 97; BMI 40.3
[2025-01-01 23:49] VITALS: BP 136/86
--- NOTE | 2025-01-01 23:53 | ED.NAVMDI ---
HPI - Nausea/Vomiting/Diarrhea General Time Seen by Provider: 23:53 Date Seen: 01/01/25 Chief complaint: Nausea/Vomiting Stated complaint: high blood pressure, nausea Time Seen by Provider: 01/01/25 23:52 Source: patient Mode of arrival: ambulatory Limitations: no limitations History of Present Illness HPI Narrative: 34-year-old male in today with concern for an episode nausea occurring just prior to emergency department. Currently on antibiotics for an infection in his toe. Patient notes he was lying with his son chidi and felt sweaty, checked his blood pressure and was elevated. He drinks water laid down, had another episode of getting sweaty recheck his blood pressure was still high, spouse called EMS. They checked his blood pressure and recommended to come to the emergency department. Patient denies chest pain, shortness of breath, vomiting during these episodes. Does note that he has a history of high blood pressure and took his blood pressure medication chidi. Related Data Home Medications ?Medication ?Instructions ?Recorded ?Confirmed cephalexin 500 mg capsule 500 mg PO 3XD 01/01/25 01/01/25 irbesartan 300 mg tablet 300 mg PO DAILY 01/01/25 01/01/25 Allergies Allergy/AdvReac Type Severity Reaction Status Date / Time lisinopril Allergy Severe Cough Verified 01/01/25 22:51 PFSH PFS Social History Smoking Status: Never smoker Do you use any of these nicotine containing products: None Second hand tobacco smoke exposure: No How often do you have a drink containing alcohol: never How often do you have six or more drinks on one occasion: Never AUDIT-C Alcohol total score: 0 Non-prescribed substance use: denies use service: No Exam Narrative: Exam Narrative: General: Well-developed and well-nourished, no acute distress Head: Atraumatic and normocephalic Eyes: Pupils are equal reactive, extraocular motions intact, conjunctiva clear ENT: External nose and ears are normal, posterior pharynx without erythema or exudate Neck: No midline cervical tenderness, full spontaneous range of motion the neck, trachea midline, no adenopathy Heart: Regular rate and rhythm no murmurs or thrills Lungs: Clear to auscultation bilaterally without wheezes or crackles Abdomen: Soft, nontender, nondistended with active bowel sounds Musculoskeletal: No tenderness, deformity, or edema Neurologic: Awake, alert, and oriented x3, no gross focal neurologic deficits, cranial nerves intact as tested Psych: Mood and affect are appropriate Skin: No rashes Const: Vital Signs, click to edit/add: Vital Signs - 24 hr 01/01/25 22:45 01/01/25 23:49 Temperature 98.0 F Pulse Rate [Pulse Oximeter] 83 Respiratory Rate 16 Blood Pressure [Ri ght Upper Arm] 153/96 H 136/86 Pulse Oximetry 97 Oxygen Delivery Me thod Room Air Course Course ED Course: Reviewed prior emergency department visit from May 2022 which was for a kidney stone. Patient seen and examined, presents with 2 episodes of sweating is tonight with blood pressures up to the 160s to 180s over 100s. No associated chest pain, palpitations, shortness of breath. Feels a little lightheaded now but otherwise fine. On exam, vital is stable, no focal neurologic deficits, heart is regular. EKG and troponin ordered, if these are reassuring patient will be discharged. Did consider pulmonary embolism but no chest pain, no tachycardia or hypoxia, low risk by Wells criteria and PERC negative. Reevaluation(s) Time of Reevaluation #1: 00:30 Reevaluation #1: EKG independently interpreted by me performed at 12:27 a.m. (incorrect time on EKG) normal sinus rhythm rate 79, OR 134, QTC 431, no acute ischemic changes, nonspecific ST changes. No prior for comparison. Troponin is pending. Time of Reevaluation #2: 01:01 Reevaluation #2: Troponin 0, patient remains asymptomatic and stable for discharge per Vital Signs Vital signs: Initial Vital Signs Temperature 98.0 F 01/01/25 22:45 Temperature Source Temporal Artery Scan 01/01/25 22:45 Pulse Rate 83 01/01/25 22:45 Pulse Rhythm Regular 01/01/25 22:45 Respiratory Rate 16 01/01/25 22:45 Blood Pressure 153/96 H 01/01/25 22:45 Blood Pressure Mean 115 H 01/01/25 22:45 Blood Pressure Position Sitting 01/01/25 22:45 Pulse Oximetry 97 01/01/25 22:45 Oxygen Delivery Method Room Air 01/01/25 22:45 Vital Signs Temperature 98.0 F 01/01/25 22:45 Pulse Rate 83 01/01/25 22:45 Respiratory Rate 16 01/01/25 22:45 Blood Pressure 153/96 H 01/01/25 22:45 Pulse Oximetry 97 01/01/25 22:45 Oxygen Delivery Method Room Air 01/01/25 22:45 Temperature 98.0 F 01/01/25 22:45 Pulse Rate 83 01/01/25 22:45 Respiratory Rate 16 01/01/25 22:45 Blood Pressure 136/86 01/01/25 23:49 Pulse Oximetry 97 01/01/25 22:45 Oxygen Delivery Method Room Air 01/01/25 22:45 Discharge Plan Discharge Clinical Impression: Hypertension, Diaphoresis Patient Disposition: Home, Self-Care Condition: Stable Instructions: Heart Healthy Diet (ED), Hypertension (ED) Activity Level: Activity as Tolerated Discharge Diet: Regular Prescriptions: No Action cephalexin 500 mg capsule 500 mg PO 3XD irbesartan 300 mg tablet 300 mg PO DAILY Follow Up/Referrals: Provider,Not a Local [Primary Care Provider, Family Practice] Stand Alone Forms: MyHealth Info Instructions
--- OUTSIDE RECORDS SUMMARY | 2025-01-02 01:18 | XMS_ITS | Encounter Summary ---
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
--- OUTSIDE RECORDS SUMMARY | 2025-01-02 01:19 | XMS_ITS | Clinical Summary ---
Author Organization [facility] Address [address] [place] [address] Care Team Providers Care Textile Supervisor Name Role Phone Yang Arias PA-C Primary Care Provider [phone] Source Comments You are receiving this document [...] for each transition of care or referral. [facility] Allergies Active Allergy Reactions Criticality Noted Date [...] (10/27/2022): Added automatically from request for surgery [id number] Sleep-related eating disorder 12/01/2018 11/24/2024 Impaired fasting glucose 10/29/201701/2025 Chest pain 03/26/2012 11/24/2024 Anxiety 03/26/2012 11/24/2024 Hypokalemia 03/26/2012 11/24/2024 Encounters Date Type Department Care Team Description 12/26/2024 1:00 PM CDT Office Visit [address] [phone] Linh Armendariz PA-C Cellulitis of great toe of left foot (Primary Dx); Dermatitis; Essential hypertension (HRC) 12/05/2024 E-Visit [facility] [address] [place] [address] Saulo Cochran 11/25/2024 Results Follow-Up [address] [phone] Yang Arias PA-C 11/24/2024 3:05 PM CDT Lab Visit Laboratory at [address] [phone] Primary hypertension (HRC); Screening for deficiency anemia; Screening for diabetes mellitus; Screening for hyperlipidemia; Screening for prostate cancer 11/24/2024 2:35 PM CDT Office Visit [address] [phone] Yang Arias PA-C Routine health maintenance (Primary Dx); Primary hypertension (HRC); Screening for deficiency anemia; Screening for hyperlipidemia; Screening for diabetes mellitus; Screening for prostate cancer; Encounter for immunization; Class 2 severe obesity with serious comorbidity and body mass index (BMI) of 38.0 to 38.9 in adult, unspecified obesity type (HRC) 10/25/2024 Telephone [facility] [address] [place] [address] Yang Arias PA-C Medication Questions [...] on file 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0 11/24/2024 6:59 PM T [facility] Hours Fasting 5.0 8 - 12 Hours 11/24/2024 6:59 PM CDT [facility] Blood Venipuncture / Unknown 11/24/2024 3:16 PM CDT 11/24/2024 3:16 PM CDT us Yang Arias PA-C LAB_1 Final Resul t [facility] CLIA: [id number] [id number] [place] [address] LABORATORY CLIA: [id number] [address] [place] [id number] * Comp Metabolic Panel (11/24/2024 3:16 PM CDT) Sodium 138 136 - 145 mmol/L 11/24/2024 6:59 PM [facility] Potassium 4.3 3.5 - 5.1 mmol/L 11/24/2024 6:59 PM [facility] Chloride 104 98 - 109 mmol/L 11/24/2024 6:59 PM T [facility] CO2 28 20 - 29 mmol/L 11/24/2024 6:59 PM [facility] Anion Gap 6 6 - 16 mmol/L 11/24/2024 6:59 PM [facility] Calcium 9.0 8.4 - 10.4 mg/dL 11/24/2024 6:59 PM [facility] BUN 10 7 - 26 mg/dL 11/24/2024 6:59 PM [facility] Creatinine 0.78 0.73 - 1.18 mg/dL 11/24/2024 6:59 PM [facility] Alkaline Phosphatase 66 40 - 150 U/L 11/24/2024 6:59 PM [facility] AST (SGOT) 34 16 - 46 U/L 11/24/2024 6:59 PM [facility] ALT (SGPT) 51 0 - 55 U/L 11/24/2024 6:59 PM [facility] Bilirubin, Total 0.4 0.2 - 1.2 mg/dL 11/24/2024 6:59 PM [facility] Protein, Total 7.2 6.4 - 8.3 g/dL 11/24/2024 6:59 PM CDT [facility] Albumin 4.5 3.5 - 5.0 g/dL 11/24/2024 6:59 PM CDT [facility] Glucose 90 70 - 100 mg/dL 11/24/2024 6:59 PM CDT [facility] Comment:The given reference range is for the fasting state. Non-fasting reference range for glucose is 70 - 180 mg/dL. GFR, Estimated >60 >60 mL/min/1. 73m2 11/24/2024 6:59 PM CDT [facility] Hours Fasting 5.0 8 - 12 Hours 11/24/2024 6:59 PM CDT [facility] Blood Venipuncture / Unknown 11/24/2024 3:16 PM CDT 11/24/2024 3:16 PM CDT Yang Arias PA-C LAB_1 Final Resul t [facility] CLIA: [id number] [address] [place] [address] LABORATORY CLIA: [id number] [address] [place] [address] * Prostatic Specific Antigen (Screen) (11/24/2024 3:16 PM CDT) Prostatic Specific Antigen 0.5 <=2.5 ng/mL 11/24/2024 7:15 PM CDT [facility] Comment:When the PSA value i s below the age-specific reference value but within 0.5 ng/mL, consider referral to urology. Blood Venipuncture / Unknown 11/24/2024 3:16 PM CDT 11/24/2024 3:16 PM CDT Narrative [facility] - 11/24/2024 7:15 PM CDT [employer] PSA Chemiluminescent immunoassay is used. Results obtained with different test methods or kits cannot be used interchangeably. us Yang Arias PA-C LAB_1 Final Resul t [facility] CLIA: [id number] [address] [address] * Complete Blood Count-No Diff (11/24/2024 3:16 PM CDT) WBC 4.7 3.5 - 10.5 x10(9)/L 11/24/2024 3:20 PM CDT [facility] RBC 4.89 4.32 - 5.72 x10(12)/L 11/24/2024 3:20 PM CDT [facility] Hemoglobin 14.9 13.5 - 17.5 g/dL 11/24/2024 3:20 PM CDT [facility] HCT 43.8 38.8 - 50.0 % 11/24/2024 3:20 PM CDT [facility] MCV 89.6 80.0 - 100.0 fL 11/24/2024 3:20 PM CDT [facility] MCH 30.5 27.6 - 33.3 pg 11/24/2024 3:20 PM CDT [facility] MCHC 34.0 31.5 - 35.2 g/dL 11/24/2024 3:20 PM CDT [facility] RDW 13.4 11.9 - 15.5 % 11/24/2024 3:20 PM CDT [facility] Platelets 287 150 - 450 x10(9)/L 11/24/2024 3:20 PM CDT [facility] Blood Venipuncture / Unknown 11/24/2024 3:16 PM CDT 11/24/2024 3:16 PM CDT Yang Arias PA-C LAB_1 Final Resul t [facility] CLIA: [id number] [address] [place] [address] * (ABNORMAL) Hgb A1C (11/24/2024 3:16 PM CDT) Hemoglobin A1C 5.8(H) <=5.6 % 11/24/2024 7:09 PM CDT [facility] Estimated Average Glucose (Calc) 120 < 117 mg/dL 11/24/2024 7:09 PM CDT [facility] Comment:Estimated average gl ucose (eAG) converts A1c into glucose units (mg/dL) and estimates average glucose over the past approximately 3 months. The eAG reference interval (<117 mg/dL) corresponds to an A1c of <5.7%. Blood Venipuncture / Unknown 11/24/2024 3:16 PM CDT 11/24/2024 3:16 PM CDT Narrative [facility] - 11/24/2024 7:09 PM CDT For patients not previously diagnosed with diabetes: 5.7-6.4%: Increased risk for diabetes 6.5% and greater: Diagnostic for diabetes For patients diagnosed with diabetes: <8.0%: Goal of therapy for ages 18-75 Clinicians may recommend a higher or lower goal for specific individuals. Yang Arias PA-C LAB_1 Final Resul t Performing Organization Address [facility] Co de Phone Number [facility] CLIA: [id number] [address] [place] [address] * HIV 1/2 Ag/Ab 4th Generation (07/23/2021 11:39 AM CDT) HIV 1/2 Antigen/Anti body (4th generation) Negative (Non Reactive) Negative (Non Reactive) 07/23/2021 3:33 PM CDT [facility] Comment:HIV-1 p24 Antigen an d HIV-1/HIV-2 Antibody not detected Blood Venipuncture / Unknown 07/23/2021 11:39 AM CDT 07/23/2021 11:39 AM CDT Yang Arias PA-C LAB_1 Final Resul t Performing Organization Address [facility] Co de Phone Number [facility] [address] [phone] * Hepatitis C Antibody, with Reflex (07/23/2021 11:39 AM CDT) Hepatitis C Antibody Negative (Non Reactive) Negative (Non Reactive) 07/23/2021 3:39 PM CDT [facility] Comment:Antibodies to HCV no t detected. Does not exclude the possiblity of exposure to HCV. Blood Venipuncture / Unknown 07/23/2021 11:39 AM CDT 07/23/2021 11:39 AM CDT us Yang Arias PA-C LAB_1 Final Resul t [facility] [facility] [address] [address], [facility] [phone] from Last 3 Months or Most Recently Relevant to Health Maintenance Insurance [facility] [address] HP COMM [facility] DENT[facility] HP COMM [employer] INSURED DENTAL Advance Directives * Full Code (Latest Code Status on File) Date Activated Date Inactivated Comments 12/11/2022 1:13 PM 12/11/2022 5:37 PM Care Teams Textile Supervisor Relationship Specialty Start Date End Date Yang Arias PA-C [address] [place] [address] PCP - General Physician Mobility Developer 09/27/21
--- OUTSIDE RECORDS SUMMARY | 2025-01-02 01:19 | XMS_ITS | Encounter Summary ---
Author Organization [facility] Address [address] [place] [address] Care Team Providers Care Property Disposal Officer Name Role Phone Yang Airas PA-C Primary Care Provider [phone] Encounter Details Date Type Department Care Team (Latest Contact Info) Description 07/24/2015 Correspondence Occupational and Environmental Medicine [address] [facility] [address] [place] [address] Tori Manning MD [address] [place] [address] [phone] [place] [address] RESPIRATOR CLEARANCE EVALUATION FOR NM DOC Social History Tobacco Use Types Packs/Day [...] on file 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
--- OUTSIDE RECORDS SUMMARY | 2025-01-02 01:19 | XMS_ITS | Encounter Summary ---
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
--- OUTSIDE RECORDS SUMMARY | 2025-01-02 01:19 | XMS_ITS | Clinical Summary ---
Author Organization [facility] [employer] [facility] Address [address] [place] [id number] Phone Care Team Providers Care Speech Language Therapist Name Role Phone Unavailable Primary Care Provider Unavailabl e Allergies No known active allergies Medications valsartan (DIOVAN) 40 MG tablet Take 1 Tab by mouth one time a day. 90 Tab 1 9 Active losartan (COZAAR) 25 MG tablet Take 25 mg by mouth one time a day. 1 9 Active fluticasone furoate (VERAMYST) 27.5 MCG/SPRAY nasal spray Instill 1 [place] nasally one time a day. Shake well [...] Grandfather S/p CABG in his 40s d/t [place], multple stents and bypasses. 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
--- OUTSIDE RECORDS SUMMARY | 2025-01-02 01:19 | XMS_ITS | Clinical Summary ---
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 on file Not on file Not on f ile Obstetrics History Last Filed Vital Signs Vital Sign Reading Time Taken Comments Blood Pressure 138/88 04/21/2021 1:17 PM DEPUTY CHIEF MAGISTRATE Pulse 80 04/19/2021 2:56 PM DEPUTY CHIEF MAGISTRATE Temperature 36.5 C (97.7 F) 04/19/2021 2:56 PM DEPUTY CHIEF MAGISTRATE Respiratory Rate 16 04/19/2021 2:56 PM DEPUTY CHIEF MAGISTRATE Oxygen Saturation 99% 04/19/2021 2:56 PM DEPUTY CHIEF MAGISTRATE Inhaled Oxygen Concentration - - Weight 145.2 kg (320 lb) 04/19/2021 2:56 PM DEPUTY CHIEF MAGISTRATE Height 195.6 cm (6' 5) 03/24/2021 2:49 PM DEPUTY CHIEF MAGISTRATE Body Mass Index 37.95 03/24/2021 2:49 PM DEPUTY CHIEF MAGISTRATE Plan of Treatment Health Maintenance Due Date [...] REFLEX MEASURED LDL Routine 04/04/2015 12:46 PM DEPUTY CHIEF MAGISTRATE Screening, lipid from Last 3 Months or Most Recently Relevant to Health Maintenance Results * (ABNORMAL) LIPID PANEL W REFLEX MEASURED LDL (04/04/2015 12:46 PM DEPUTY CHIEF MAGISTRATE) CHOLESTEROL,TOTAL 138 100 - 199 mg/dL 04/04/2015 1:12 PM [facility] TRIGLYCERIDES 91 <150 mg/dL 04/04/2015 1:12 PM [facility] HDL CHOLESTEROL 30(L) >40 mg/dL 04/04/2015 1:12 PM [facility] NON-HDL CHOLESTEROL 108 <145 mg/dl 04/04/2015 1:12 PM [facility] CHOL/HDL RATIO 4.60(H) <4.50 04/04/2015 1:12 PM [facility] LDL CHOLESTEROL 90 <=130 mg/dL 04/04/2015 1:12 PM [facility] PATIENT STATUS FASTING 04/04/2015 1:12 PM [facility] Blood specimen (specimen) BLOOD SPECIMEN / Unknown Venipuncture / Unknown 04/04/2015 12:46 PM DEPUTY CHIEF MAGISTRATE 04/04/2015 12:46 PM DEPUTY CHIEF MAGISTRATE us Mary Mtz MD CHEMISTRY Final Resul t [facility] [place] [address] from Last 3 Months or Most Recently Relevant to Health Maintenance [place] Care Teams Wildlife Photographer Relationship Specialty Start Date End Date [facility], [place] [address] [place] [address] PCP - General 01/30/21
[2025-01-02 01:31] LABS: Troponin, Point-of-Care* 0.00 ng/ml (0.01-0.04)
== END 2025-01-02 01:21 | disposition home or self-care (01) ==
LOC: ED 01-02 01:17
PROVIDERS: Emergency Provider Family Medicine; PCP Physician Assistant
DX: R61 Generalized hyperhidrosis (principal); I10 Essential (primary) hypertension
CPT/HCPCS: 36415; 84484; 93005; 99284